=== PATIENT | female | born 1985 | race Hispanic/Latino ===

== ENCOUNTER 2024-03-14 14:58 | Emergency (ER) | payer SELFPAY ==
[~2024-03-14] VITALS: Ht 170.2 cm; Wt 86.1 kg
[2024-03-14] VITALS (9 sets, daily range): BP systolic 116–154; BP diastolic 72–103
[2024-03-14] MEDS ORDERED: KETOROLAC TROMETHAMINE 30 MG/ML SDV IV ONE (15:30)
[2024-03-14] MEDS ORDERED: SODIUM CHLORIDE 0.9% 1,000 ML IV ONE (15:30)
[2024-03-14 15:31] LABS: BASO% 0.3 % (0-3); EOS% 1.2 % (0-8); HEMATOCRIT 30.4 % (37.0-47.0); HEMOGLOBIN 9.7 g/dl (12.0-16.0); IMMATURE GRANULOCYTES 0.3 % (0.0-5.0); LYMPH% 25.4 % (15-41); MEAN CELL VOLUME 88.6 fL CALC (80.0-100.0); MEAN CORPUSCULAR HGB 28.3 pG CALC (26.0-32.0); MEAN CORPUSCULAR HGB CONC 31.9 g/dL CAL (32.0-36.0); MONO% 6.9 % (2-13); NEUT# 7.58 thou/uL (2.00-7.15); NEUT% 65.9 % (42-76); RED BLOOD COUNT 3.43 mill/uL (4.20-5.60); RED CELL DISTRI WIDTH 13.5 % (11.5-15.5)
[2024-03-14 15:37] LABS: ALBUMIN 4.3 g/dL (3.2-5.0); BILIRUBIN, TOTAL 0.4 mg/dL (0.02-1.3); CREATININE 0.7 mg/dL (0.5-1.0); POTASSIUM 3.9 mmol/l (3.5-5.1); TOTAL PROTEIN 7.6 g/dL (6.3-8.2)
[2024-03-14] MEDS ORDERED: PROGESTERONE200 MG PO (16:58)
[2024-03-14] MEDS ORDERED: MORPHINE SULFATE 4 MG/ML VIAL IV ONE (17:05)
[2024-03-14] MEDS ORDERED: ONDANSETRON HCl 4 MG/2 ML SDV IV ONE (17:05)
[2024-03-14] MEDS ORDERED: TRAMADOL HYDROC50 M1 PO (17:11)
== END 2024-03-14 17:52 | disposition home or self-care (01) | DRG 761 ==
LOC: ED 14:58
PROVIDERS: Family Medicine
DX: N93.8 Other specified abnormal uterine and vaginal bleeding (principal)